=== PATIENT | female | born 1990 | race African-American/Black ===

== ENCOUNTER 2018-02-27 22:13 | Emergency (ER) | payer OTHER ==
[~2018-02-27] VITALS: Ht 175.3 cm; Wt 102.5 kg
[2018-02-28 00:50] LABS: ABSOLUTE BASOPHIL COUNT 0.1 /CUMM (0.0-0.2); ABSOLUTE EOSINOPHIL COUNT 0.3 /CUMM (0.0-0.7); ABSOLUTE GRANULOCYTE CT 4.3 /CUMM (1.4-6.5); ABSOLUTE LYMPH COUNT 2.4 /CUMM (1.2-3.4); ABSOLUTE MONOCYTE COUNT 0.7 /CUMM (0.10-0.60); BASOPHIL % 1.5 % (0.0-2.0); EOSINOPHIL % 3.7 % (0-5); GRANULOCYTE % 55.3 % (42.2-75.2); HEMATOCRIT 31.9 % (37-47); MEAN CORPUSCULAR HGB 24.4 PG (27.0-31.0); MEAN CORPUSCULAR HGB CONC 31.8 G/DL (33.0-37.0); MEAN CORPUSCULAR VOLUME 76.7 FL (81.0-99.0); MEAN PLATELET VOLUME 8.1 FL (7.4-10.4); PLATELET COUNT 321 /CUMM (130-400); RBC DISTRIBUTION WIDTH 17.6 % (11.5-14.5); RED BLOOD CELL CT 4.16 /CUMM (4.20-5.40); WHITE BLOOD CELL COUNT 7.8 /CUMM (4.8-10.8)
--- NOTE | 2018-02-28 01:30 | ED GI/GU/ABDOMINAL COMPLAINT ---
History of Present Illness General Chief Complaint: Nausea, Vomiting, Diarrhea Stated Complaint: 8 WEEKS PREG, BLOOD IN VOMIT Source: patient Exam Limitations: no limitations Vital Signs & Intake/Output Vital Signs & Intake/Output Vital Signs Date Time Temp Pulse Resp B/P B/P Pulse O2 O2 Flow FiO2 Mean Ox Delivery Rate 02/27 2307 97.6 72 18 103/63 99 Room Air ED Intake and Output 02/28 0000 02/27 1200 Intake Total Output Total Balance Patient 226 lb Weight Weight Reported by Patient Measurement Method Allergies Coded Allergies: No Known Drug Allergies (NKDA 02/27/18) Triage Note: PT IS 8 WEEKS . PT TO ED C/O +NAUSEA SINCE THIS MORNING (NOT USUAL FOR HER SO FAR), +VOMITTING SINCE 1899 WITH SMALL BRIGHT RED CLOT SEEN EARLY IN APPROX 5 MINS OF VOMITTING. PAIN DOWN WHOLE LEFT SIDE, WORSE IN LLQ FOR THE LAST 2 HRS. DENIES VAGINAL BLEEDING. Triage Nurses Notes Reviewed? yes ? y Is pt currently ? No Onset: Gradual Duration: hour(s): Timing: recent history Quality/Severity: cramping Activities at Onset: none Prior Abdominal Problems: none Modifying Factors: Improves With: rest. Associated Symptoms: nausea/vomiting HPI: 27-year-old woman , 8 week gestation , with a normal IUP within the past few weeks, presents with 1 episode of vomiting with Flexeril bright red blood. She states that her nausea and vomiting has resolved. She states also that she had some left-sided abdominal pain that extended from her left hip up through her ribs. This pain is also self resolved. These episodes occurred approximately 7 to 7:30 PM, approximately 5-6 hours ago. She notes that presently she is feeling better. Past History Travel History Traveled to [place] past 21 day No Medical History Any Pertinent Medical History? see below for history Blood Disorders: anemia Surgical History Surgical History: non-contributory Psychosocial History What is your primary language Yi Tobacco Use: Never used ETOH Use: denies use Illicit Drug Use: denies illicit drug use Family History Hx Contributory? No Review of Systems Review of Systems Constitutional: Denies: see HPI. Physical Exam Physical Exam Gastrointestinal: normal bowel sounds, soft, non-tender, no organomegaly Comments: Review of Systems - except as otherwise noted in HPI Review of Systems Constitutional:no symptoms. EENTM:no symptoms. Respiratory:no symptoms. Cardiovascular:no symptoms. GI:no symptoms. Genitourinary:no symptoms. Musculoskeletal:no symptoms. Skin:no symptoms. Neurological/Psychological:no symptoms. Hematologic/Endocrine:no symptoms. Immunologic/Allergic:no symptoms. All Other Systems: Reviewed and Negative Physical Exam Physical Exam General Appearance: well developed/nourished, no apparent distress Head: atraumatic, normal appearance Eyes: Bilateral: normal appearance. Ears, Nose, Throat: normal pharynx, normal ENT inspection Neck: normal inspection, supple, full range of motion Respiratory: normal breath sounds, chest non-tender, no respiratory distress, quiet respiration, lungs clear Cardiovascular: regular rate/rhythm Gastrointestinal: normal bowel sounds, soft, non-tender, no organomegaly Back: normal inspection, normal range of motion Extremities: normal inspection, normal capillary refill, normal range of motion, no edema Neurologic/Psych: no motor/sensory deficits, awake, alert, oriented x 3 Skin: intact, normal color, warm/dry Core Measures ACS in differential dx? No Sepsis Present: No Sepsis Focused Exam Completed? No Progress Differential Diagnosis: spontaneous miscarriage versus hyperemesis versus food poisoning versus muscle strain versus other Plan of Care: Orders Procedure Date/time Status URINALYSIS 02/27 2305 Complete LIPASE 02/27 2302 Complete HEPATIC FUNCTION PANEL 02/27 2302 Complete HUMAN BETA HCG TITRE 02/27 2302 Complete CBC WITHOUT DIFFERENTIAL 02/27 2302 Complete BASIC METABOLIC PANEL 02/27 2302 Complete AMYLASE 02/27 2302 Complete Laboratory Tests 02/28/18 0228: Urinalysis MOD H, Urine Color YEL, Urine Clarity TURBD H, Urine pH 6.0, Ur Specific [place] >= 1.030, Urine Protein TRACE H, Urine Ketones NEG, Urine Nitrite NEG, Urine Bilirubin NEG, Urine Urobilinogen 0.2, Ur Leukocyte Esterase NEG, Ur Microscopic SEDIMENT EXAMINED, Urine RBC 1-3, Urine WBC 3-5 H, Ur Epithelial Cells MANY H, Urine Bacteria MOD H, Urine Mucus MANY H, Urine Hemoglobin NEG, Urine Glucose NEG 02/28/18 0036: Anion Gap 12, Estimated GFR > 60, BUN/Creatinine Ratio 17.1, Glucose 90, Calcium 8.8, Total Bilirubin 0.4, Direct Bilirubin 0.1, AST 16, ALT 19, Alkaline Phosphatase 55, Total Protein 7.7, Albumin 4.0, Amylase 96, Lipase 100, Beta HCG , Quant 876193.0, CBC w Diff NO MAN DIFF REQ, RBC 4.16 L, MCV 76.7 L, MCH 24.4 L, MCHC 31.8 L, RDW 17.6 H, MPV 8.1, Gran % 55.3, Lymphocytes % 30.4, Monocytes % 9.1, Eosinophils % 3.7, Basophils % 1.5, Absolute Granulocytes 4.3, Absolute Lymphocytes 2.4, Absolute Monocytes 0.7 H, Absolute Eosinophils 0.3, Absolute Basophils 0.1 Initial ED EKG: none Departure Departure Disposition: HOME OR SELF CARE Condition: Stable Clinical Impression Primary Impression: Nausea and vomiting Secondary Impressions: Abdominal pain, Referrals: Unknown (PCP/Family) Departure Forms: Customer Survey General Discharge Information Comments 02/28/18, 2:53am... pt resting comfortably in the ED... no vaginal bleeding. blood count stable... bedside u/s shows IUP... pt safe for discharge with close follow up advised.
[2018-02-28 03:05] VITALS: BP 121/56
== END 2018-02-28 03:06 ==
LOC: ERH 22:13
PROVIDERS: Pediatrics
DX: O21.9 Vomiting of pregnancy, unspecified (principal); Z3A.08 8 weeks gestation of pregnancy
CPT/HCPCS: 81001; 96374; 96375; J2405